=== PATIENT | male | born 1965 ===

== ENCOUNTER 2021-05-16 16:36 | Inpatient (IN) | payer OTHER ==
[~2021-05-16] VITALS: Ht 167.6 cm; Wt 58.7 kg
--- NOTE | 2021-05-16 17:42 | NUR ---
[facility]/O MULTIPLE WOUNDS ON BODY X1 MONTH. PATIENT REPORTS HE STAYED AT A HOTEL FOR A COUPLE DAYS A LITTLE OVER A MONTH AGO AND NOTICED MULTIPLE BITES ON HIS BODY FROM "BED BUGS." PATIENT SEEN AT [facility] FOR THE SAME, GIVEN ABX, PATIENT DID NOT FILL RX. MULTIPLE WOUNDS NOTED ON BODY IN DIFFERENT STAGES OF HEALING. LARGE WOUND, REDNESS AND SWELLING NOTED ON INNER LEFT ANKLE. CONNECTED TO MONITOR, VSS, CALL LIGHT WITHIN REACH.
--- NOTE | 2021-05-16 18:05 | NUR ---
ERMD AT BEDSIDE FOR EVALUATION.
[2021-05-16] MEDS ORDERED: CEFTRIAXONE 2 GM in DEXTROSE 5% 50 ML IVPB ONE (18:30)
--- NOTE | 2021-05-16 18:50 | NUR ---
REPORT TO DONAVAN JONES FOR TRANSFER OF PATIENT CARE.
--- NOTE | 2021-05-16 18:50 | NUR ---
received report from DONAVAN Ying
[2021-05-16 19:02] LABS: BASOPHILS % (AUTO) 1 % (0-1); EOSINOPHILS % (AUTO) 4 % (1-7); LYMPHOCYTES % (AUTO) 9 % (22-44); MEAN CORPUSCULAR HEMOGLOBIN 28.4 pg (27.5-34.5); MEAN CORPUSCULAR HGB CONC 33.8 g/dL (33.2-36.2); MEAN PLATELET VOLUME 8.5 fL (7.4-10.4); MONOCYTES % (AUTO) 7 % (2-9); NEUTROPHILS % (AUTO) 79 % (42-75); PLATELET COUNT 433 x10^3/uL (130-400); RED BLOOD COUNT 4.33 x10^6/uL (4.38-5.82); RED CELL DISTRIBUTION WIDTH 14.6 % (9.4-14.8)
--- NOTE | 2021-05-16 19:03 | NUR ---
PT RESTING ON GURNEY, DENIES NEEDS AT THIS TIME.
[2021-05-16 19:09] LABS: ALBUMIN 2.5 g/dL (3.4-5.0); ANION GAP 10 mmol/L (5-15); CALCIUM 8.7 mg/dL (8.5-10.1); CHLORIDE 98 mmol/L (98-107); CREATININE 0.83 mg/dL (0.7-1.3)
--- NOTE | 2021-05-16 20:00 | NUR ---
pt resting on gurney, denies needs at this time.
[2021-05-16] MEDS ORDERED: BISACODYL 10 MG SUPP PR PRN (21:00)
[2021-05-16] MEDS ORDERED: OXYcodone IR 5MG TABLET PO PRN (21:00)
[2021-05-16] MEDS ORDERED: ACETAMINOPHEN 325 MG TABLET PO PRN (21:00)
[2021-05-16] MEDS ORDERED: POLYETHYLENE GLYCOL 17 GM PACKET PO PRN (21:00)
[2021-05-16] MEDS: AMPICILLIN/SULBACTAM 3 GM in SODIUM CHLORIDE 0.9% 100 ML IV SCH (21:01)
--- NOTE | 2021-05-16 21:10 | NUR ---
pt resting on gurney, denies needs at this time.
--- NOTE | 2021-05-16 21:54 | NUR ---
Pt to be admitted to Medical, room 364. Report called to DONAVAN Gonzales.
[2021-05-16 22:27] VITALS: BP 160/74
[2021-05-16] MEDS ORDERED: NS + 20MEQ KCL 1,000 ML IV SCH (22:27)
[2021-05-16] MEDS: HEPARIN 5,000 UNITS/ML, 1ML SQ SCH (22:48)
[2021-05-17 01:53] VITALS: BP 139/77
[2021-05-17] MEDS: AMPICILLIN/SULBACTAM 3 GM in SODIUM CHLORIDE 0.9% 100 ML IV SCH ×4 (03:02→20:16)
[2021-05-17 06:01] LABS: BASOPHILS % (AUTO) 0 % (0-1); EOSINOPHILS % (AUTO) 6 % (1-7); LYMPHOCYTES % (AUTO) 8 % (22-44); MEAN CORPUSCULAR HEMOGLOBIN 27.9 pg (27.5-34.5); MEAN CORPUSCULAR HGB CONC 33.2 g/dL (33.2-36.2); MEAN PLATELET VOLUME 7.6 fL (7.4-10.4); MONOCYTES % (AUTO) 7 % (2-9); NEUTROPHILS % (AUTO) 80 % (42-75); PLATELET COUNT 406 x10^3/uL (130-400); RED BLOOD COUNT 4.26 x10^6/uL (4.38-5.82); RED CELL DISTRIBUTION WIDTH 14.7 % (9.4-14.8)
[2021-05-17] MEDS: HEPARIN 5,000 UNITS/ML, 1ML SQ SCH ×2 (06:23→20:16)
[2021-05-17] MEDS: SODIUM CHLORIDE 0.9% 1,000 ML IV SCH (07:56)
[2021-05-17] MEDS: SENNA/DOCUSATE TABLET PO SCH (07:56)
[2021-05-17] MEDS ORDERED: ACETAMINOPHEN 325 MG TABLET PO PRN (08:00)
[2021-05-17 08:35] LABS: CALCIUM 7.9 mg/dL (8.5-10.1); CREATININE 0.52 mg/dL (0.7-1.3)
[2021-05-17 08:41] LABS: ANION GAP 5 mmol/L (5-15); CHLORIDE 106 mmol/L (98-107)
[2021-05-17 09:02] VITALS: BP 126/63
[2021-05-17 12:01] VITALS: BP 158/76
[2021-05-17] MEDS: MUPIROCIN CRM 2%, 15GM TP SCH (17:39)
[2021-05-17 20:13] VITALS: BP 147/70
[2021-05-18 00:04] VITALS: BP 129/73
[2021-05-18] MEDS: SODIUM CHLORIDE 0.9% 1,000 ML IV SCH ×2 (00:10→19:30)
[2021-05-18] MEDS: AMPICILLIN/SULBACTAM 3 GM in SODIUM CHLORIDE 0.9% 100 ML IV SCH ×4 (02:49→21:19)
[2021-05-18] MEDS: MUPIROCIN CRM 2%, 15GM TP SCH ×2 (05:31→19:30)
[2021-05-18 06:14] LABS: BASOPHILS % (AUTO) 1 % (0-1); EOSINOPHILS % (AUTO) 8 % (1-7); LYMPHOCYTES % (AUTO) 14 % (22-44); MEAN CORPUSCULAR HEMOGLOBIN 28.2 pg (27.5-34.5); MONOCYTES % (AUTO) 8 % (2-9); NEUTROPHILS % (AUTO) 70 % (42-75); PLATELET COUNT 403 x10^3/uL (130-400); RED BLOOD COUNT 4.29 x10^6/uL (4.38-5.82); RED CELL DISTRIBUTION WIDTH 14.6 % (9.4-14.8)
[2021-05-18 06:22] LABS: CHLORIDE 107 mmol/L (98-107)
[2021-05-18 06:33] LABS: ANION GAP 4 mmol/L (5-15); CALCIUM 8.1 mg/dL (8.5-10.1); CREATININE 0.56 mg/dL (0.7-1.3)
[2021-05-18 06:45] VITALS: BP 122/67
[2021-05-18] MEDS: HEPARIN 5,000 UNITS/ML, 1ML SQ SCH ×2 (08:36→21:18)
[2021-05-18] MEDS: SENNA/DOCUSATE TABLET PO SCH (09:00)
[2021-05-18 13:55] VITALS: BP 148/66
[2021-05-18 19:21] VITALS: BP 136/66
[2021-05-19 02:20] VITALS: BP 184/75
[2021-05-19] MEDS: AMPICILLIN/SULBACTAM 3 GM in SODIUM CHLORIDE 0.9% 100 ML IV SCH ×3 (02:22→16:13)
[2021-05-19] MEDS ORDERED: LABETALOL 5MG/ML, 20ML IVPush ONE (02:30)
[2021-05-19] MEDS ORDERED: hydrALAzine 20 MG/ML, 1ML IV ONE (03:30)
[2021-05-19 04:17] VITALS: BP 161/73
[2021-05-19] MEDS ORDERED: MUPIROCIN OINT 2%, 15GM TP SCH (06:00)
[2021-05-19 06:58] VITALS: BP 127/65
[2021-05-19] MEDS: HEPARIN 5,000 UNITS/ML, 1ML SQ SCH (08:59)
[2021-05-19] MEDS: SENNA/DOCUSATE TABLET PO SCH (08:59)
[2021-05-19] MEDS ORDERED: AMOX1TAB64 PO (10:13)
[2021-05-19] MEDS ORDERED: MUPI22OI2 TP (10:13)
[2021-05-19 13:42] VITALS: BP 121/78
== END 2021-05-19 17:32 | disposition home or self-care (01) | DRG 603 ==
LOC: ED 21:30 → EDIP 22:11 → 3N 22:13
PROVIDERS: ADMIT Family Medicine; ATTEND Internal Medicine
DX: L03.116 Cellulitis of left lower limb (principal); E87.1 Hypo-osmolality and hyponatremia; I10 Essential (primary) hypertension; D64.9 Anemia, unspecified; E83.51 Hypocalcemia; F12.10 Cannabis abuse, uncomplicated; L03.115 Cellulitis of right lower limb; Z59.0 Homelessness; Z82.5 Family history of asthma and other chronic lower respiratory diseases; D47.3 Essential (hemorrhagic) thrombocythemia; R23.4 Changes in skin texture; F17.210 Nicotine dependence, cigarettes, uncomplicated; Z71.6 Tobacco abuse counseling; Z71.51 Drug abuse counseling and surveillance of drug abuser
CPT/HCPCS: 36415; 80048; 82040; 82330; 83605; 84145; 85025; 87040; 96365; 96375; G0378; J0295; J0696; J1644; J3480; J0360; J7030